=== PATIENT | female | born 1960 | race Caucasian/White ===

== ENCOUNTER 2018-09-13 10:41 | Outpatient (CLI) | payer BC ==
[2018-09-13] MEDS ORDERED: ATOR20TA37 PO (11:12)
[2018-09-13] MEDS ORDERED: BARIATRIC VITAMINS (11:12)
[2018-09-13] MEDS ORDERED: LEVO25TA4 PO (11:12)
[2018-09-13] MEDS ORDERED: MELO15TA24 PO (11:12)
[2018-09-13] MEDS ORDERED: RISE35TA PO (11:12)
[2018-09-17] MEDS ORDERED: MEPERIDINE/PF 25MG/0.5ML IVPush PRN (10:00)
[2018-09-17] MEDS ORDERED: ONDANSETRON 2MG/ML, 2ML IVPush PRN (10:00)
[2018-09-17] MEDS ORDERED: FENTANYL PF 100 MCG/2ML IV PRN (10:00)
[2018-09-17] MEDS ORDERED: MIDAZOLAM 1 MG/ML, 2ML IV PRN (10:00)
[2018-09-17] MEDS ORDERED: LABETALOL 5MG/ML, 20ML IV PRN (10:00)
[2018-09-17] MEDS ORDERED: OXYcodone 5 MG/5 ML ORAL.SOL UDC PO PRN (10:00)
[2018-09-17] MEDS ORDERED: PLEASE ENTER HEIGHT AND WEIGHT MC SCH (10:00)
[2018-09-17] MEDS ORDERED: HYDROmorphone 1 MG/ML, 1ML INJ IV PRN (10:00)
== END 2018-09-13 23:59 | disposition home or self-care (01) ==
LOC: STAR 10:41
PROVIDERS: ATTEND Obstetrics & Gynecology Female Pelvic Medicine and Reconstructive Surgery
DX: Z02.9 Encounter for administrative examinations, unspecified (principal)

== ENCOUNTER 2018-09-17 11:00 | Day surgery (SDC) | payer BC ==
[~2018-09-17] VITALS: Ht 170.2 cm; Wt 78.0 kg
[~2018-09-17 11:00] MED LIST: ATOR20TA37 PO; BARIATRIC VITAMINS; LEVO25TA4 PO; MELO15TA24 PO; RISE35TA PO
[2018-09-17 11:37] VITALS: BP 98/65
[2018-09-17] MEDS ORDERED: LACTATED RINGERS 1,000 ML IV SCH (11:41)
[2018-09-17] MEDS ORDERED: BUPIVACAINE/PF 0.25% ONE (15:08)
[2018-09-17] MEDS ORDERED: NEOMY/POLYMYXIN B GU IRR. 1 ML ONE (15:09)
[2018-09-17] MEDS ORDERED: ACETAMINOPHEN 500 MG TABLET ONE (15:30)
[2018-09-17] MEDS ORDERED: ACETAMINOPHEN 500 MG TABLET PO ONE (15:30)
[2018-09-17] MEDS ORDERED: FAMOTIDINE 20 MG TABLET PO ONE (15:30)
[2018-09-17] MEDS ORDERED: FAMOTIDINE 20 MG TABLET ONE (15:31)
[2018-09-17] MEDS ORDERED: CEFAZOLIN 1,000 MG ONE (15:36)
[2018-09-17] MEDS ORDERED: PROPOFOL 10 MG/ML, 20ML ONE (15:36)
[2018-09-17] MEDS ORDERED: METOCLOPRAMIDE 5 MG/ML, 2ML ONE (15:36)
[2018-09-17] MEDS ORDERED: DEXAMETHASONE 4 MG/ML, 1ML ONE (15:36)
[2018-09-17] MEDS ORDERED: ONDANSETRON 2MG/ML, 2ML ONE (15:36)
[2018-09-17] MEDS ORDERED: MIDAZOLAM 1 MG/ML, 2ML ONE (15:39)
[2018-09-17] MEDS ORDERED: FENTANYL PF 100 MCG/2ML ONE (15:39)
[2018-09-17] MEDS ORDERED: OXYcodone 5 MG/5 ML ORAL.SOL UDC ONE (16:59)
[2018-09-17] MEDS ORDERED: FENTANYL PF 100 MCG/2ML IV PRN ×2 (17:30→21:00)
[2018-09-17] MEDS ORDERED: OXYcodone 5 MG/5 ML ORAL.SOL UDC PO PRN ×2 (17:30→21:30)
[2018-09-17] MEDS ORDERED: HYDROcodone/APAP 5/325 TABLET PO PRN (19:30)
[2018-09-17] MEDS ORDERED: KETOROLAC 30 MG/1 ML IV PRN (19:30)
[2018-09-17] MEDS ORDERED: HYDROmorphone 1 MG/ML, 1ML INJ IV PRN ×2 (19:30→21:00)
[2018-09-17] MEDS ORDERED: OXYcodone/APAP 5/325MG TABLET PO PRN (19:30)
[2018-09-17] MEDS ORDERED: ONDANSETRON 2MG/ML, 2ML IV PRN (19:30)
[2018-09-17] MEDS ORDERED: LABETALOL 5MG/ML, 20ML IV PRN (21:00)
[2018-09-17] MEDS ORDERED: MEPERIDINE/PF 25MG/0.5ML IVPush PRN (21:30)
[2018-09-17] MEDS ORDERED: MIDAZOLAM 1 MG/ML, 2ML IV PRN (21:30)
[2018-09-17] MEDS ORDERED: ONDANSETRON 2MG/ML, 2ML IVPush PRN (21:30)
[2018-09-22] MEDS ORDERED: IBUPROFEN 600 MG TABLET PO PRN (18:00)
== END 2018-09-17 19:50 | disposition home or self-care (01) ==
LOC: OUT 11:00 → 4NOR 17:56 → OUT 19:50
PROVIDERS: ATTEND Obstetrics & Gynecology Female Pelvic Medicine and Reconstructive Surgery
DX: N81.2 Incomplete uterovaginal prolapse (principal); N39.46 Mixed incontinence; N81.89 Other female genital prolapse; E03.9 Hypothyroidism, unspecified; E78.00 Pure hypercholesterolemia, unspecified; Z72.89 Other problems related to lifestyle; Z79.890 Hormone replacement therapy; Z79.899 Other long term (current) drug therapy; Z85.41 Personal history of malignant neoplasm of cervix uteri; Z92.3 Personal history of irradiation; Z98.84 Bariatric surgery status
CPT/HCPCS: 57265; 57282; 57288; C1771; J0690; J1100; J2250; J2405; J2704; J2765; J3010; J3490; J7120; G0378